=== PATIENT | male | born 1985 | race Caucasian/White ===

== ENCOUNTER 2019-09-07 16:13 | Outpatient (CLI) | payer OTHER ==
--- NOTE | 2019-09-07 17:17 | Ultrasound Report ---
PROCEDURE: Abdomen Complete INDICATIONS: ABD PX TECHNIQUE: Real-time scanning was performed of the abdominal and retroperitoneal organs, with image documentatio n. COMPARISON: None. FINDINGS: Liver: Normal size. Increased in echogenicity. Areas of focal fatty sparing. Gallbladder: Gallbladder is nondistended. No stones or sludge. No gallbladder wall thickening. No per icholecystic fluid. Negative sonographic Lozoya sign. Biliary ducts: Intrahepatic bile ducts are non-dilated. Extrahepatic bile duct caliber measures 3 m m. Normal is 6-7 mm or less in diameter, or 10 mm or less post-cholecystectomy. Pancreas: Visualized portions of the pancreas are sonographically normal. Spleen: Spleen is normal in size and homogeneous in echotexture. Kidneys: Kidneys are normal in size and echotexture. Right kidney measures 10.7 cm long; left kidne y measures 9.9 cm long. No hydronephrosis or nephrolithiasis. No solid masses. Aorta: Visualized aorta is normal in caliber at less than 3 cm. Iliacs: Proximal common iliac arteries are normal in caliber at less than 2.5 cm. IVC: Intrahepatic inferior vena cava is patent. Miscellaneous: No free abdominal fluid. Subcutaneous mass at the left lateral abdomen. The mass is lobular in appearance. Mass is echogenic w ith internal vascularity. The mass measures 4.5 x 2.8 x 1.4 cm. IMPRESSION: 1. Subcutaneous soft tissue mass in the left abdomen. This has the appearance of a benign lipoma. If the lesion is new or painful recommend further evaluation with MRI or ultrasound-guided biopsy. 2. Increased echogenicity of the hepatic parenchyma. This is most commonly seen in hepatic steatosis. Other forms of hepatocellular disease could have a similar appearance. 3. No gallstones. Reviewed by: Cristiano Ornelas MD on 09/07/2019 5:16 PM PDT Approved by: Cristiano Ornelas MD on 09/07/2019 5:16 PM PDT Station ID: [id number]
== END 2019-09-07 16:14 | disposition home or self-care (01) ==
LOC: DI 16:13
PROVIDERS: ATTEND Physician Assistant Medical
DX: D17.1 Benign lipomatous neoplasm of skin and subcutaneous tissue of trunk (principal)
CPT/HCPCS: 76700

== ENCOUNTER 2019-10-16 14:02 | Outpatient (CLI) | payer OTHER | END 2019-10-16 14:03 | disposition home or self-care (01) | LOC: COV 14:02 | PROVIDERS: ATTEND Surgery | DX: Z01.818 Encounter for other preprocedural examination (principal); D17.79 Benign lipomatous neoplasm of other sites; Z20.828 Contact with and (suspected) exposure to other viral communicable diseases ==

== ENCOUNTER 2019-10-20 10:00 | Day surgery (SDC) | payer OTHER ==
[~2019-10-20 10:00] MED LIST: BUPIVACAINE 0.25% PF 30 ML VIAL ONE; BUPIVACAINE 0.25%-EPI 1:200000 PF 30 ML VIAL ONE; LIDOCAINE 1% 50 ML MDV ONE
[2019-10-20] MEDS ORDERED: LACTATED RINGERS 1,000 ML IV ONE ×2 (10:05→12:56)
--- NOTE | 2019-10-20 11:09 | ANESTHESIA ---
Pre-Anesthesia VS, & Labs - Diagnosis L hip/flank lipoma - Procedure L hip/flank lipoma removal Vital Signs: Temp Pulse Resp BP Pulse Ox 36.4 C L 57 L 16 125/75 98 10/20/19 10:05 10/20/19 10:05 10/20/19 10:05 10/20/19 10:05 10/20/19 10:05 Height 6 ft 1 in Weight (kg) 84.6 kg - NPO >8 hours Home Medications and Allergies Home Medications: Ambulatory Orders Omeprazole 20 mg PO 10/19/19 Omeprazole 20 mg PO 10/19/19 Allergies/Adverse Reactions: Allergies Allergy/AdvReac Type Severity Reaction Status Date / Time No Known Drug Allergies Allergy Verified 10/19/19 12:50 Anes History & Medical History - Anesthetic History Anesthesia Complications: reports: No previous complications Family history of Anesthesia Complications: Denies Family history of Malignant Hyperthermia: Denies - Medical History Cardiovascular: reports: None Pulmonary: reports: None Gastrointestinal: reports: GERD (controlled) Urinary: reports: None Musculoskeletal: reports: None Endocrine/Autoimmune: reports: None Skin: reports: None Exam General: Alert, Oriented x3, Cooperative Dental: WNL Mouth Opening: Greater than 4 Fingerbreadths Neck Mobility: Normal Mallampati classification: II Thyromental Distance: greater than 6 cm Respiratory: Lungs clear, Normal breath sounds Cardiovascular: Regular rate Neurological: Normal speech Mental/Cognitive Status: Alert/Oriented X3, Normal for patient Cognitive Status: Within normal limits Plan Anesthesia Type: MAC Consent for Procedure(s) Verified and Reviewed: Yes Code Status: Attempt Resuscitation ASA classification: 2-Mild systemic disease Is this case an emergency?: No
[2019-10-20] MEDS ORDERED: LIDOCAINE 1% 50 ML MDV SUBQ ONE ×2 (12:27)
[2019-10-20] MEDS ORDERED: BUPIVACAINE 0.25% PF 30 ML VIAL SUBQ ONE ×2 (12:27)
[2019-10-20] MEDS ORDERED: HYDROcod/ACETAM 5/325 MG TABLET PO PRN (12:59)
[2019-10-20 13:22] VITALS: BP 132/92
--- NOTE | 2019-10-20 14:13 | OPERATIVE REPORT ---
DATE OF SERVICE: 10/20/2019 Physician: Samm De La Rosa MD PREOPERATIVE DIAGNOSES 1. Growing and symptomatic lipoma, left flank. 2. Growing and symptomatic lipoma, left thigh. PROCEDURE PERFORMED 1. Excision of 3 cm left flank lipoma. 2. Intermediate repair 3.5 cm incision. 3. Excision of a 4.5 cm lipoma, left thigh. 4. Intermediate repair of . 3.5 cm incision. SURGEON: Samm De La Rosa MD GM MOBILE: None. ANESTHESIA: Monitored anesthesia care, IV sedation, local anesthesia. COMPLICATIONS: None. ESTIMATED BLOOD LOSS: None. DRAINS: None. SPECIMENS: Clinically, benign, not sent for pathology. INDICATIONS FOR PROCEDURE: Patient is a healthy 34-year-old gentleman with a growing and now painful and tender lipoma, left flank and left thigh. He presents for excision of the symptomatic ones. Ri sks discussed, alternatives discussed. All questions answered and consent obtained. DESCRIPTION OF PROCEDURE: Patient was properly identified, brought to the operating room and placed in supine position. Monitored anesthesia care was given. He was prepped and draped in a sterile fas hion. Antibiotics were not given. Local anesthetic was given to the surgery areas. Elliptical inci sions were made over the top of these nearly subdermal lipomas. Dissection proceeded with cutting cu rrent. The lipomas were removed in their entirety with gentle retraction and use of cautery. Hemost asis was achieved with cautery, followed by an intermediate repair. Deep subcutaneous tissue was moose sed with interrupted 3-0 Vicryl suture. Buried interrupted subdermal 3-0 [address] sutures were then pl aced. Skin of the 2 incisions was closed with running 4-0 Monocryl subcuticular suture. Dressings w ere applied. He tolerated the procedure very well. TD: 10/20/2019 13:23
--- NOTE | 2019-10-20 16:56 | ANESTHESIA POST OP EVALUATION ---
Anesthesia Post Eval - Post Anesthesia Eval Vitals: Last Vital Signs Temp 36.4 C L 10/20/19 13:21 Pulse 48 L 10/20/19 13:21 Resp 16 10/20/19 13:21 BP 132/92 H 10/20/19 13:21 Pulse Ox 100 10/20/19 13:21 CV Function Including HR & BP: positive: Stable Pain Control: positive: Satisfactory Nausea & Vomiting: positive: Negative Mental Status: positive: Baseline Hydration Status: Satisfactory
== END 2019-10-20 10:01 | disposition home or self-care (01) ==
LOC: SDS 10:00
PROVIDERS: ATTEND Surgery
DX: D17.24 Benign lipomatous neoplasm of skin and subcutaneous tissue of left leg (principal); D17.1 Benign lipomatous neoplasm of skin and subcutaneous tissue of trunk; K21.9 Gastro-esophageal reflux disease without esophagitis; G43.909 Migraine, unspecified, not intractable, without status migrainosus; Z87.891 Personal history of nicotine dependence
CPT/HCPCS: 13101; 13121; 22903; 27337; J7120